=== PATIENT | female | born 1990 | race Caucasian/White ===

== ENCOUNTER 2020-12-27 12:29 | Emergency (ER) | payer MEDICAID, SELFPAY ==
[2020-12-27 12:35] VITALS: BP 138/79; PULSE 140; RESP 20; TEMP 36.3; O2SAT 97
--- NOTE | 2020-12-27 12:45 | RT.EKG_ITS ---
APPROVED REPORT Exam: Resting ECG Reason for Exam: tachycardia Patient Location: E HR:122 bpm ECG Measurements Heart Rate 122 AXIS IA 154 P 61 QRSd 104 QRS 76 QT 323 T 44 QTc 460 Conclusion Sinus tachycardia. J point elevation, may be rate related
--- NOTE | 2020-12-27 13:00 | DI.RAD_ITS ---
Exam(s) XR PORTABLE CHEST AP EXAM: XR PORTABLE CHEST AP CLINICAL HISTORY: cough. TECHNIQUE: 2D digital imaging was performed. COMPARISON: No exams were available for comparison FINDINGS: Heart size is normal. The mediastinum is not widened. Lungs are clear. No infiltrates nor obvious pleural effusions. IMPRESSION: No acute pulmonary findings on this single AP portable view of the chest. DATA REPOSITORY: RADIATION DOSE DELIVERED: All CT scans at this facility use at least one of these dose optimization techniques: automated exposure control; mA and/or kV adjustment per patient size (includes targeted e xams where dose is matched to clinical indication); or iterative reconstruction.
--- NOTE | 2020-12-27 13:22 | ED.GENADUL_ITS ---
Discharge Plan Disposition Patient Disposition: HOME Condition: Stable Discharge Details Clinical Impression: Bronchitis, Hypokalemia Primary Care Provider: None,None ED Provider: Nicholas Downs Home Meds and New Rx's Prescriptions: New prednisone 20 mg tablet 60 mg PO DAILY 5 Days Qty: 15 RF: 0 Continued albuterol sulfate [ProAir HFA] 90 mcg/actuation Hfa Aerosol Inhaler 2 puff INHALATION QID PRNRF: 0 Mirena 20 mcg/24 hours (6 yrs) 52 mg Intrauterine Device 1 insert INTRAUTERINE ONCE RF: 0 Discharge Instructions Instructions: Acute Bronchitis (ED), Hypokalemia (ED) Additional Instructions: I strongly recommend that you quit smoking. Do not overuse your inhaler, I can not stress the importance. I recommend taking [id number] potassium supplement over the next few days as your potassium was low here in the ER. Prednisone as directed. Please watch for new or worsening symptoms and return to the ER for any concerns. I do recommend that you you contact your primary care provider to discuss your ER visit, need for outpatient reevaluation, and need for potassium recheck. Discharge Data Discharge Date/Time-TO BE ENTERED AT DEPARTURE: 12/27/20 16:07 Medical Decision Making 30-year-old female, past medical history of asthma, current smoker, presents for concern of bronchitis. She has grossly overused her albuterol inhaler over the past 24 hours, totaling at least 200 puffs. She presents with tachycardia, afebrile, O2 sats 97% on room air. Tachycardia likely secondary to the albuterol however given her symptoms would like to obtain EKG, single troponin, and a D-dimer for further evaluation. 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 We did have a long talk about overuse of her albuterol. We also discussed smoking cessation Laboratory values reveal a blood cell count of 9.19, potassium 2.5, GFR greater than 60, troponin less than 0.05, Covid negative, D-dimer 298. No indication to pursue CTA of the chest Patient denies ever having hypokalemia before. EKG is not consistent with acute hyperkalemic changes. Will give 10 IV and 40 p.o. potassium. Likely hypokalemia secondary to her overuse of albuterol. Chest x-ray does not reveal any signs of pneumonia. No clear indication for antibiotic therapy. 125 IV Solu-Medrol given I explained to the patient that I would like to recheck her potassium given her time constraints she declines, understands the risk but needs to picker her child. She was encouraged to take [id number] potassium supplement over the next couple of days and have her potassium rechecked through her primary care provider. We once again discussed the importance of not overusing her albuterol inhaler. I will provide a prescription for burst dose of prednisone. Patient comfortable this plan and has no additional questions or concerns. Standard discharge and return precautions given. Heart rate trended downward throughout her ER visit. Heart rate now 112. This documentation was generated using [employer] system, please disregard any oddities of phrase or misspellings. Medical Records Medical records reviewed: Yes I reviewed the patient's medical records. Imaging Data Radiologic Study: Attestation: I personally reviewed and interpreted this imaging study as follows: Imaging: X-Ray Radiologist's impression: EXAM XR PORTABLE CHEST AP CLINICAL HISTORY [ cough. ] [] TECHNIQUE 2D digital imaging was performed. COMPARISON [No exams were available for comparison] [] FINDINGS [Heart size is normal. The mediastinum is not widened.] [Lungs are clear. No infiltrates nor obvious pleural effusions.] ] [] IMPRESSION [No acute pulmonary findings on this single AP portable view of the chest. Lab Data Lab results reviewed: Yes I reviewed the patient's lab results. Labs: Laboratory Tests Range/Units 12/27/20 12/27/20 12/27/20 13:18 13:30 13:35 WBC (4.4-10.8) 10^3/uL RBC (3.93-5.22) 10^6/uL Hgb (11.2-15.7) g/dL Hct (36.0-46.0) % MCV (80-95) fL MCH (27.0-33.0) pg MCHC (32.0-36.0) % RDW (11.7-14.6) % Plt Count (130-400) 10^3/uL MPV (8.0-11.0) fL Immature Gran % Neutrophils % Lymphocytes % Monocytes % Eosinophils % Basophils % Nucleated RBC % % Absolute Neutrophils (1.2-6.7) 10^3/uL Absolute Lymphocytes (1.2-3.4) 10^3/uL Absolute Monocytes (0.1-0.8) 10^3/uL Absolute Eosinophils (0.0-0.7) 10^3/uL Absolute Basophils (0.0-0.2) 10^3/uL D-Dimer (<500) ng/mlFEU Sodium (136-145) mmol/L 139 Potassium (3.5-5.1) mmol/L 2.5 L* Chloride (98-107) mmol/L 102 Carbon Dioxide (21.0-32.0) mmol/L 26.5 Anion Gap (3-11) mmol/L 10.5 BUN (7-18) mg/dL 6 L Creatinine (0.55-1.02) mg/dL 0.4 L Estimated GFR/1.73 m2 (mL/min/1.73m2) >= 60.00 Glucose (74-106) mg/dL 111 H Calcium (8.5-10.1) mg/dL 8.9 Magnesium (1.8-2.4) mg/dL 1.8 Total Bilirubin (0.2-1.0) mg/dL 0.5 AST (15-37) U/L 34 ALT (14-59) U/L 38 Alkaline Phosphatase (46-116) U/L 105 Troponin I (<0.06) ng/mL < 0.05 Total Protein (6.4-8.2) g/dL 7.2 Albumin (3.4-5.0) g/dL 3.7 COVID-19 Source Nasal/Nares SARS-CoV-2 (PCR) (Negative) Negative Range/Units 12/27/20 12/27/20 13:35 13:35 WBC (4.4-10.8) 10^3/uL 9.19 RBC (3.93-5.22) 10^6/uL 4.65 Hgb (11.2-15.7) g/dL 12.3 Hct (36.0-46.0) % 36.6 MCV (80-95) fL 78.7 L MCH (27.0-33.0) pg 26.5 L MCHC (32.0-36.0) % 33.6 RDW (11.7-14.6) % 12.4 Plt Count (130-400) 10^3/uL 185 MPV (8.0-11.0) fL 10.6 Immature Gran % 0.3 Neutrophils % 70.5 Lymphocytes % 22.2 Monocytes % 6.7 Eosinophils % 0.2 Basophils % 0.1 Nucleated RBC % % 0 Absolute Neutrophils (1.2-6.7) 10^3/uL 6.47 Absolute Lymphocytes (1.2-3.4) 10^3/uL 2.04 Absolute Monocytes (0.1-0.8) 10^3/uL 0.62 Absolute Eosinophils (0.0-0.7) 10^3/uL 0.02 Absolute Basophils (0.0-0.2) 10^3/uL 0.01 D-Dimer (<500) ng/mlFEU 298 Sodium (136-145) mmol/L Potassium (3.5-5.1) mmol/L Chloride (98-107) mmol/L Carbon Dioxide (21.0-32.0) mmol/L Anion Gap (3-11) mmol/L BUN (7-18) mg/dL Creatinine (0.55-1.02) mg/dL Estimated GFR/1.73 m2 (mL/min/1.73m2) Glucose (74-106) mg/dL Calcium (8.5-10.1) mg/dL Magnesium (1.8-2.4) mg/dL Total Bilirubin (0.2-1.0) mg/dL AST (15-37) U/L ALT (14-59) U/L Alkaline Phosphatase (46-116) U/L Troponin I (<0.06) ng/mL Total Protein (6.4-8.2) g/dL Albumin (3.4-5.0) g/dL COVID-19 Source SARS-CoV-2 (PCR) (Negative) ECG Data Attestation: I personally reviewed and interpreted this ECG (s) as follows: Interpretation: Please see official report by Dr. Tijerina. Sinus tachycardia, rate of 122. J-point elevation, may be rate related HPI General Mode of arrival: ambulatory . Date/Time Provider Initiated Documentation: 12/27/20 12:40 . Limitations to Documentation: no limitations . Information obtained by: patient . HPI Narrative: This is a 30-year-old female, current pack-a-day smoker, past medical history of asthma, presenting to the ER concerned that she has bronchitis and requesting oral steroids. Patient reports dry cough, shortness of breath over the past 2 days. Patient states that she has albuterol inhaler at home with a dose counter, has used over 200 puffs in the past 24 hours. She denies headache, fever productive cough, chest pain, abdominal pain, pain or swelling in her legs. Patient states that she recently moved to the area from [place] and is in the process of getting a new primary care doctor locally. She has not taken any [id number] medications for her symptoms. Patient states that she typically gets sick this time of year every year and needs steroids. Related Data Home Medications Medication Instructions Recorded Confirmed Mirena 1 insert INTRAUTERINE ONCE 12/27/20 12/27/20 albuterol sulfate [ProAir HFA] 2 puff INHALATION QID PRN 12/27/20 12/27/20 prednisone 60 mg PO DAILY 5 Days #15 tab 12/27/20 Previous Rx's Medication Instructions Recorded prednisone 60 mg PO DAILY 5 Days #15 tab 12/27/20 Allergies Allergy/AdvReac Type Severity Reaction Status Date / Time Sulfa (Sulfonamide Allergy Hives Unverified 12/27/20 12:38 Antibiotics) General Stated Complaint: RespSymp YONATAN: 4 Review of Systems Constitutional Constitutional: Denies fever(s) and Denies headache(s) ENT Ears, Nose, Mouth, and Throat: Denies headache(s) Cardiovascular Cardiovascular: Denies chest pain and Reports dyspnea Respiratory Respiratory: Reports cough and Reports dyspnea Gastrointestinal Gastrointestinal: Denies abdominal pain, Denies nausea and Denies vomiting Musculoskeletal Musculoskeletal: Denies back pain Integumentary/Breasts Skin/Breast: Denies rash Neurologic Neurologic: Denies headache(s) [facility] Medical History Asthma Social History Smoking/Tobacco Use Status: Current every day Tobacco Type: cigarettes Smoking risk assessment performed?: Yes Substance use type: marijuana Do you feel safe at home: Yes Do you feel safe in your relationship?: Yes Exam Const General: cooperative, healthy appearing, comfortable and no acute distress Orientation: alert, awake and oriented x3 HENMT Head: normal to inspection, normocephalic and atraumatic Ears: external ears normal, TM's normal bilaterally and EAC's normal Face and sinus: normal facial exam Mouth: moist mucous membranes Throat: posterior oropharynx normal Eyes General: appearance normal, both eyes and all related structures Conjunctivae: conjunctivae normal Neck Neck: normal visual inspection, full ROM, no lymphadenopathy, trachea midline, supple and nontender Resp Effort & Inspection: normal respiratory effort and able to speak in complete sentences Auscultation: wheezes (Occasional, scattered throughout, clears with coughing) Cardio Rate: tachycardic (144) Rhythm: regular rhythm GI Palpation: soft and nontender Back/Spine/Pelvis Back: No back tenderness Skin General skin exam: no rashes or lesions noted Neuro General: patient alert, patient awake, moves all extremities and no focal motor deficits Speech: speech normal Gait: normal gait Sensory Exam: no sensory deficits noted Extrem General: normal to inspection, full ROM, capillary refill normal, no pedal edema and no calf tenderness Psych Appearance: grossly normal Mental Status: mental status grossly normal Course Vital Signs Vital signs: Vital Signs Temperature 36.3 C L 12/27/20 12:35 Pulse 140 H 12/27/20 12:35 Respiratory Rate 20 12/27/20 12:35 Blood Pressure 138/79 12/27/20 12:35 Pulse Oximetry 97 12/27/20 12:35 Temperature 36.3 C L 12/27/20 12:35 Temperature Source Skin 12/27/20 12:35 Pulse 140 H 12/27/20 12:35 Respiratory Rate 20 12/27/20 12:35 Respiratory Effort Non-Labored 12/27/20 12:40 Blood Pressure 138/79 12/27/20 12:35 Blood Pressure Position Sitting 12/27/20 12:35 Pulse Oximetry 97 12/27/20 12:35 Oxygen Delivery Method Room Air 12/27/20 12:35 Oxygen Flow Rate 0 12/27/20 12:35 Pain Level 0 12/27/20 12:35
[2020-12-27 13:34] LABS: Source Nasal/Nares
[2020-12-27 13:53] LABS: Abs Immature Grans 0.03 10^3/uL (0.0-0.06); Absolute Basophil Count 0.01 10^3/uL (0.0-0.2); Absolute Eosinophil Count 0.02 10^3/uL (0.0-0.7); Absolute Lymphocyte Count 2.04 10^3/uL (1.2-3.4); Absolute Monocyte Count 0.62 10^3/uL (0.1-0.8); Absolute Neutrophil Count 6.47 10^3/uL (1.2-6.7); Basophils % 0.1; Eosinophils % 0.2; HCT 36.6 % (36.0-46.0); HGB 12.3 g/dL (11.2-15.7); Immature Grans % 0.3; Lymphocytes % 22.2; MCH 26.5 pg (27.0-33.0); MCHC 33.6 % (32.0-36.0); MCV 78.7 fL (80-95); MPV 10.6 fL (8.0-11.0); Monocytes % 6.7; Neutrophils % 70.5; Nucleated RBC 0 %; Platelet Count 185 10^3/uL (130-400); RBC 4.65 10^6/uL (3.93-5.22); RDW 12.4 % (11.7-14.6); RDW-SD 35.4 fL; WBC 9.19 10^3/uL (4.4-10.8)
[2020-12-27 14:10] LABS: ALT 38 U/L (14-59); AST 34 U/L (15-37); Albumin 3.7 g/dL (3.4-5.0); Alkaline Phosphatase 105 U/L (46-116); Anion Gap 10.5 mmol/L (3-11); BUN 6 mg/dL (7-18); Bilirubin, Total 0.5 mg/dL (0.2-1.0); CO2 26.5 mmol/L (21.0-32.0); CREATININE 0.4 mg/dL (0.55-1.02); Calcium 8.9 mg/dL (8.5-10.1); Chloride 102 mmol/L (98-107); Glucose 111 mg/dL (74-106); Sodium 139 mmol/L (136-145); Total Protein 7.2 g/dL (6.4-8.2)
[2020-12-27 14:11] LABS: Potassium 2.5 mmol/L (3.5-5.1); Troponin I < 0.05 ng/mL (<0.06)
[2020-12-27 14:18] LABS: D-Dimer 298 ng/mlFEU (<500)
[2020-12-27 14:26] LABS: COVID-19 PCR Negative (Negative)
[2020-12-27 14:33] LABS: Magnesium 1.8 mg/dL (1.8-2.4)
[2020-12-27 14:36] VITALS: PULSE 124; RESP 24; O2SAT 100
[2020-12-27 14:40] VITALS: PULSE 120; RESP 22; O2SAT 100
[2020-12-27] MEDS: Potassium Chloride 20 MEQ TABCR 40 MEQ PO (14:41)
[2020-12-27] MEDS: POTASSIUM CHLORIDE 10 MEQ/100 ML BAG 100 MEQ IVPB (14:41)
[2020-12-27] MEDS: methylPREDNISolone SUCC 125 MG VIAL IVP (14:51)
[2020-12-27 16:04] VITALS: BP 120/59; PULSE 118; RESP 16; TEMP 36.6; O2SAT 100
--- NOTE | 2020-12-27 16:48 | NUR.NOTE ---
referral cm for pcp establish
--- NOTE | 2020-12-28 09:58 | PDOC.ERCMPRO ---
- If Service Date Differs Date of service: 12/28/20 Time of Service: 09:58 Care Management Progress Note Anastasiia is seen in the ED for bronchitis. At the request of ED provider, KEIRA coordinates a referral to Jose Espinoza MD, of the [facility], on-call provider, to assist Anastasiia in obtaining a follow up appointment and in establishing care with a PCP. She has [place] Medicaid for insurance.
== END 2020-12-27 16:07 | disposition home or self-care (01) ==
PROVIDERS: Emergency Provider Physician Assistant
DX: J20.9 Acute bronchitis, unspecified (principal); F17.210 Nicotine dependence, cigarettes, uncomplicated; E87.6 Hypokalemia; R00.0 Tachycardia, unspecified; J45.909 Unspecified asthma, uncomplicated; Z79.51 Long term (current) use of inhaled steroids
CPT/HCPCS: 36415; 80053; 87635; 93005; 96365; 96375; 99284; 71045; 83735; 84484; 85025; 85379; 93010; J2930; J3480

== ENCOUNTER 2021-10-15 21:23 | Emergency (ER) | payer MEDICAID, SELFPAY ==
--- NOTE | 2021-10-15 21:51 | W.ED.GENAD ---
Discharge Plan Disposition Patient Disposition: HOME Condition: Good Discharge Details Clinical Impression: Cellulitis of right lower limb Primary Care Provider: Unknown,Unknown ED Provider: Sohan Blue Home Meds and New Rx's Prescriptions: New clindamycin HCl 150 mg capsule 450 mg PO Q8H 7 Days Qty: 63 0RF clotrimazole 1 % cream 1 appful vaginal QHS Qty: 45 0RF No Action albuterol sulfate [ProAir HFA] 90 mcg/actuation Hfa Aerosol Inhaler 2 puff INHALATION QID PRN Mirena 20 mcg/24 hours (6 yrs) 52 mg Intrauterine Device 1 insert INTRAUTERINE ONCE Discharge Instructions Instructions: Cellulitis (ED) Additional Instructions: At this time you do have cellulitis behind your knee, but you do not have an abscess yet. However you may develop an abscess over the next few days. If you notice any that liquid feeling beneath the skin, please return for reassessment. As we discussed together, there is always a chance that when you have an infection in this area that you could develop a blood clot. Although there is no clinical evidence of that now if you do develop chest pain, short of breath, or pain with breathing, please return for evaluation. Please take the antibiotic as directed. It has been sent to your pharmacy on file. Please also take the vaginal antifungal cream as needed to prevent a yeast infection. If you notice any worsening of your symptoms, or any new symptoms such as vomiting, diarrhea, fever, chills, shortness of breath, chest pain, numbness, weakness, or fainting , please return immediately to the emergency department for reevaluation. Please follow up with your primary care provider as soon as possible for reassessment and reevaluation. As always, it was a pleasure participating in your medical care today. Discharge Data Discharge Date/Time-TO BE ENTERED AT DEPARTURE: 10/15/21 22:09 Medical Decision Making This is a 30-year-old female with a past medical history of reactive airway disease, who presents today for lesion on her right calf. Patient states that 4 to 5 days ago she had what she thought was a small pimple or infected hair follicle that she tried to squeeze and pop, but nothing came out. Shortly thereafter she developed began to develop redness and swelling around the area. This is progressed over the last few days. Currently she has mild pain with walking, demonstrates notable tenderness on the skin but there is swelling and warmth. She denies fever or chills. She denies chest pain or shortness of breath. She denies any pleuritic chest pain. She denies any history of blood clots. No other complaints at this time. Pain is made worse with movement. It is improved with Tylenol and Motrin. She denies any IV or illicit drug use. She denies any trauma to the area. Physical exam demonstrates a notable area of cellulitis on the patient's posterior calf and the posterior popliteal space. No swelling of the knee itself. No edema of the joint. No evidence of septic arthritis currently. Bedside ultrasound of the area on the leg demonstrates some mild cobblestoning but shows no signs of fluctuance or abscess or fluid collection. Patient is afebrile here. Patient's heart rate was elevated, but the patient states that it is been normal at home, and she feels extremely nervous right now and states that her heart rate was fine before she got here. At this time the patient's symptoms are certainly concerning for moderate cellulitis. It is not circumferential, she is afebrile, and has no constitutional symptoms of fever or chills. She is stable for outpatient management. With no evidence of abscess, there is no indication for surgical drainage at this time. She clinically denies any chest pain, shortness of breath or pleuritic chest pain. No symptoms to suggest pulmonary embolism at this time. We will start the patient on clindamycin. I had a long discussion with the patient regarding the potential for abscess development, signs and symptoms that would reflect this. Patient understands, we recommend return if her symptoms persist and progressive back. Additionally I also discussed symptoms concerning for pulmonary embolism if she does develop a blood clot secondary to this lesion on her calf. We spent a long time going over the symptoms that would merit prompt return and the patient again understands. Will recommend continue clindamycin on outpatient basis. Discussed the importance of Tylenol and Motrin. I have extensively reviewed the treatment plan and discharge instructions with the patient. I have addressed all patient concerns at this time. The patient was made aware of what symptoms to monitor for that would warrant a return to the emergency department. Discussed the plan with the patient, they demonstrate verbal understanding and agreement with our assessment and plan at this time. The documentation in this chart was dictated using [employer] dictation software. Please excuse any dictation errors. HPI General Date/Time Provider Initiated Documentation: 10/15/21 21:28. HPI Narrative: This is a 30-year-old female with a past medical history of reactive airway disease, who presents today for lesion on her right calf. Patient states that 4 to 5 days ago she had what she thought was a small pimple or infected hair follicle that she tried to squeeze and pop, but nothing came out. Shortly thereafter she developed began to develop redness and swelling around the area. This is progressed over the last few days. Currently she has mild pain with walking, demonstrates notable tenderness on the skin but there is swelling and warmth. She denies fever or chills. She denies chest pain or shortness of breath. She denies any pleuritic chest pain. She denies any history of blood clots. No other complaints at this time. Pain is made worse with movement. It is improved with Tylenol and Motrin. She denies any IV or illicit drug use. She denies any trauma to the area. Related Data Home Medications Medication Instructions Recorded Confirmed albuterol sulfate 90 mcg/actuation 2 puff inhalation QID PRN 12/27/20 12/27/20 aerosol inhaler (ProAir HFA) levonorgestrel 20 mcg/24 hours (7 1 insert intrauterine ONCE 12/27/20 12/27/20 yrs) 52 mg intrauterine device (Mirena) clindamycin HCl 150 mg capsule 450 mg PO Q8H 7 days #63 caps 10/15/21 clotrimazole 1 % vaginal cream 1 appful vaginal QHS #45 grams 10/15/21 Previous Rx's Medication Instructions Recorded clindamycin HCl 150 mg capsule 450 mg PO Q8H 7 days #63 caps 10/15/21 clotrimazole 1 % vaginal cream 1 appful vaginal QHS #45 grams 10/15/21 Allergies Allergy/AdvReac Type Severity Reaction Status Date / Time Sulfa (Sulfonamide Allergy Hives Unverified 10/15/21 21:43 Antibiotics) General Stated Complaint: RashLesion YONATAN: 3 Review of Systems All systems reviewed & are unremarkable except as noted in HPI and below PFSH All Active Problems Bronchitis (Acute) Hypokalemia (Acute) Cellulitis of right lower limb (Acute) Medical History Asthma Social History Smoking/Tobacco Use Status: Current every day Tobacco Type: cigarettes Smoking risk assessment performed?: Yes Substance use type: marijuana Do you feel safe at home: Yes Do you feel safe in your relationship?: Yes Exam Narrative Exam Narrative: 1.Const: Well-nourished, Well-developed, appearing stated age 2.Eyes: PERRL, no conjunctival injection, and symmetrical lids. 3.ENT: Atraumatic external nose and ears. Moist MM. Neck: Symmetric, trachea midline, No thyromegaly. 4.CVS: +S1/S2, No murmurs or gallops. Peripheral pulses 2+ and equal in all extremities. Brisk capillary refill in all extremities. 5.RESP: Unlabored respiratory effort. Clear to auscultation bilaterally. No wheezes rales or rhonchi 6.GI: Soft, Nontender/Nondistended, No hepatosplenomegaly. No guarding or rebound. 7.MSK: Normocephalic/Atraumatic, patient's right posterior knee area and calf demonstrates notable amount of redness and firmness roughly 4 cm in diameter with superficial redness but no swelling or edema extending around that and down the calf. No tenderness of the knee itself. No swelling or edema of the knee itself. At the center of the cellulitis there is evidence of a small darker area. Bedside ultrasound shows no evidence of large abscess. There does appear to be a very small amount of cobblestoning in the fatty tissues, but no focal fluid collection. No subcutaneous crepitus. 8.Skin: Warm, Dry. Please see musculoskeletal 9.Neuro: teacher emotionally impaired II-XII grossly intact. Sensation grossly intact, no focal neurologic deficits. 10.Psych: (AAO) x3. Appropriate mood and affect Course Vital Signs Vital signs: Respiratory Effort Non-Labored 10/15/21 21:39
[2021-10-15 22:08] VITALS: BP 133/77; PULSE 125; RESP 18; O2SAT 100
[2021-10-15] MEDS: Clindamycin 150 MG CAP, 12 CAPS/BTL 450 MG PO (22:08)
== END 2021-10-15 22:09 | disposition home or self-care (01) ==
PROVIDERS: Emergency Provider Student in an Organized Health Care Education/Training Program
DX: L03.115 Cellulitis of right lower limb (principal)
CPT/HCPCS: 99283

== ENCOUNTER 2021-10-23 20:05 | Emergency (ER) | payer MEDICAID, SELFPAY ==
[2021-10-23 20:10] VITALS: BP 129/79; PULSE 128; RESP 18; TEMP 36.7; O2SAT 99
--- NOTE | 2021-10-23 23:38 | ED.GENADUL_ITS ---
Discharge Plan Disposition Patient Disposition: OTHER Condition: Stable Discharge Details Chief Complaint: Cellulitis Clinical Impression: Cellulitis of right lower limb Primary Care Provider: Unknown,Unknown ED Provider: Ludwig Sanchez Home Meds and New Rx's Prescriptions: No Action clotrimazole 1 % cream 1 appful vaginal QHS Qty: 45 0RF albuterol sulfate [ProAir HFA] 90 mcg/actuation Hfa Aerosol Inhaler 2 puff INHALATION QID PRN Mirena 20 mcg/24 hours (6 yrs) 52 mg Intrauterine Device 1 insert INTRAUTERINE ONCE Discharge Data Discharge Date/Time-TO BE ENTERED AT DEPARTURE: 10/23/21 21:01 Medical Decision Making Patient presenting for to the emergency department for recheck of cellulitis of left lower extremity. She does state that she was seen in [place] and placed on antibiotics and overall that the cellulitis is improving but she did notice some swelling to her leg today. She became severely anxious due to at one point being told leg swelling could be a DVT. Patient did have ultrasound imaging performed at [facility] but has not received the results yet. Physical exam shows an open draining abscess to the right superior aspect of the calf. There is mild surrounding redness but otherwise exam is unremarkable and no systemic symptoms. Bedside ultrasound was utilized and no obvious DVT was noted with full compressibility of deep veins from the proximal calf up through the thigh was performed. I did request notes from [facility] prior to discharge to see what official ultrasound imaging that he performed. Pending receiving results from [place] patient eloped and did not inform any staff or myself that she was leaving. I do not feel that patient is any risk of severe deterioration given that she denied any pain or discomfort and feel that she more likely had swelling secondary to the cellulitis and became anxious when she did not receive her results from [place]. Wound culture was sent prior to her leaving and will follow up with patient who is already on clindamycin if this does not seem to be effective antibiotic choice. HPI General Mode of arrival: ambulatory . Date/Time Provider Initiated Documentation: 10/23/21 20:07 . Limitations to Documentation: no limitations . Information obtained by: patient, RN notes reviewed and old records reviewed . History of Present Illness 30 year old F presents to the emergency department with the chief complaint of Right leg swelling and infection, described as moderate and similar to prior episodes, Quality is described as other (Denies pain ), Patient started experiencing this week(s) (2) Related Data Home Medications Medication Instructions Recorded Confirmed albuterol sulfate 90 mcg/actuation 2 puff inhalation QID PRN 12/27/20 12/27/20 aerosol inhaler (ProAir HFA) levonorgestrel 20 mcg/24 hours (7 1 insert intrauterine ONCE 12/27/20 12/27/20 yrs) 52 mg intrauterine device (Mirena) clotrimazole 1 % vaginal cream 1 appful vaginal QHS #45 grams 10/15/21 Previous Rx's Medication Instructions Recorded clotrimazole 1 % vaginal cream 1 appful vaginal QHS #45 grams 10/15/21 Allergies Allergy/AdvReac Type Severity Reaction Status Date / Time Sulfa (Sulfonamide Allergy Hives Unverified 10/15/21 21:43 Antibiotics) General Stated Complaint: Cellulitis YONATAN: 4 Review of Systems Constitutional Constitutional: Denies body ache(s), Denies chills and Denies fever(s) Cardiovascular Cardiovascular: Denies chest pain and Denies dyspnea Respiratory Respiratory: Denies dyspnea Gastrointestinal Gastrointestinal: Denies abdominal pain, Denies nausea and Denies vomiting Integumentary/Breasts Skin/Breast: Reports as per HPI, Denies erythema, Denies rash and Reports wounds Neurologic Neurologic: Denies sensory deficit PFSH All Active Problems (Updated 10/24/21 @ 21:48 by Ludwig Sanchez NP) Bronchitis (Acute) Hypokalemia (Acute) Cellulitis of right lower limb (Acute) Medical History Asthma Social History Smoking/Tobacco Use Status: Current every day Tobacco Type: cigarettes Smoking packs per day: 1.5 Smoking cigarettes per day: 30.0 Years smoked: 15 Smoking pack-years: 22.50 Tobacco: How many years used: 15 Smoking risk assessment performed?: Yes Alcohol Intake: current Alcohol Intake frequency: holidays/special occasions only Substance use type: marijuana Do you feel safe at home: Yes Do you feel safe in your relationship?: Yes Exam Const General: cooperative, no acute distress and not ill appearing Orientation: alert, awake and oriented x3 HENMT Mouth: moist mucous membranes Resp Effort & Inspection: normal respiratory effort, able to speak in complete sentences and no respiratory distress Cardio Rate: regular rate Rhythm: regular rhythm Skin Rashes: no rashes Neuro General: patient alert, patient awake, patient oriented x3, moves all extremities and no focal motor deficits Sensory Exam: no sensory deficits noted Extrem General: normal exam except as noted Right lower extremity: lower leg Details: localized swelling Location: of the proximal lower leg and no edema; no tenderness Knee images: 1. Area of abscess Course Vital Signs Vital signs: Vital Signs Temperature 36.7 C 10/23/21 20:10 Pulse 128 H 10/23/21 20:10 Respiratory Rate 18 10/23/21 20:10 Blood Pressure 129/79 10/23/21 20:10 Pulse Oximetry 99 10/23/21 20:10 Temperature 36.7 C 10/23/21 20:10 Temperature Source Skin 10/23/21 20:10 Pulse 128 H 10/23/21 20:10 Respiratory Rate 18 10/23/21 20:10 Respiratory Effort Non-Labored 10/23/21 20:20 Blood Pressure 129/79 10/23/21 20:10 Blood Pressure Position Sitting 10/23/21 20:10 Pulse Oximetry 99 10/23/21 20:10 Oxygen Delivery Method Room Air 10/23/21 20:10 Oxygen Flow Rate 0 10/23/21 20:10 Pain Level 0 10/23/21 21:08 Lab/Test Results Lab/Test Results: 10/23/21 20:40 Leg - Back Wound Culture - Pending 10/23/21 20:40 Leg - Back Gram Stain - Final
--- NOTE | 2021-10-27 11:20 | W.ED.FU ---
Follow Up Plan: Wound culture resulted MRSA moderate growth and Pseudomonas scant growth on 10/27/21. She was given clindamycin on 10/23/21. Message left on patient's cell phone [phone] to call the ED to discuss results and follow-up on her symptoms. Her clindamycin will likely cover for the MRSA but she may need additional coverage for the Pseudomonas.
--- NOTE | 2021-10-29 10:26 | NUR.NOTE ---
Nursing Note: Referral faxed to [facility] for chronic wound,1 week.
== END 2021-10-23 21:01 | disposition other institution (70) ==
LOC: ER 20:10
PROVIDERS: Emergency Provider Nurse Practitioner Family
DX: L03.115 Cellulitis of right lower limb (principal); L02.415 Cutaneous abscess of right lower limb; B95.62 Methicillin resistant Staphylococcus aureus infection as the cause of diseases classified elsewhere
CPT/HCPCS: 87077; 99283; 87070; 87186; 87205

== ENCOUNTER 2022-01-09 18:49 | Outpatient (REF) | payer MEDICAID, SELFPAY ==
--- NOTE | 2022-01-11 09:16 | NUR.NOTE ---
Nursing Note: Lab called stating the patient was positive for MRSA on this visit. I accessed the chart for the information, and found that it was sent to lab by [facility]. Lab was called and they will notify them.
== END 2022-01-09 18:50 | disposition home or self-care (01) ==
LOC: LBN 18:49
PROVIDERS: Visit Provider Physician Assistant Medical
DX: L08.89 Other specified local infections of the skin and subcutaneous tissue (principal); S71.102A Unspecified open wound, left thigh, initial encounter
CPT/HCPCS: 87077; 87070; 87186; 87205

== ENCOUNTER 2022-08-20 19:35 | Emergency (ER) | payer MEDICAID, SELFPAY ==
[2022-08-20 19:41] VITALS: BP 129/78; PULSE 121; RESP 22; O2SAT 100
[2022-08-20] MEDS: Benzocaine 20% Gel 30 GM JAR MM (20:41)
[2022-08-20] MEDS: LORazepam 2 MG/ML VIAL 1 MG IM (21:19)
--- NOTE | 2022-08-20 22:05 | ED.GENADUL_ITS ---
Discharge Plan Disposition Patient Disposition: Home Discharge Details Clinical Impression: Abscess, dental Primary Care Provider: Unknown,Unknown ED Provider: Jamia Green Home Meds and New Rx's Prescriptions: Continued clindamycin HCl 150 mg Capsule 150 mg PO TID albuterol sulfate [ProAir HFA] 90 mcg/actuation Hfa Aerosol Inhaler 2 puff INHALATION QID PRN Mirena 20 mcg/24 hours (6 yrs) 52 mg Intrauterine Device 1 insert INTRAUTERINE ONCE Discharge Instructions Instructions: Dental Abscess (ED) Additional Instructions: Continue taking your antibiotic as prescribed Yogurt daily while on antibiotic You have 4 tablets of oxycodone, no but this is addictive and can cause constipation, do not drive for 8 hours after taking this medication Take ibuprofen and Tylenol for pain control I am giving you a dental list, please review Please return immediately should you have any worsening complaints Ibuprofen and Tylenol as needed for pain Discharge Data Discharge Date/Time-TO BE ENTERED AT DEPARTURE: 08/20/22 22:40 Medical Decision Making 31-year-old female presents with large dental abscess and facial pain with swelling Dental block was performed with good effect and incision and drainage was performed with approximately 10 cc of purulent bloody drainage aspirated Patient reports marked improvement in symptoms We will continue on the clindamycin, 4 tablets of oxycodone with risk of addiction reviewed No evidence of Jeffry's angina clinically We will follow-up with oral surgery Ibuprofen and Tylenol Return precautions reviewed and patient expressed understanding Medical Records Medical records reviewed: Yes I reviewed the patient's medical records. Lab Data Lab results reviewed: Yes I reviewed the patient's lab results. HPI General Date/Time Provider Initiated Documentation: 08/20/22 19:47 . HPI Narrative: This 31-year-old female presents with report of pain to her left lower jawline. She was started on clindamycin for suspected dental abscess. She states that the pain and swelling has increased dramatically in the past day. She has been taking the antibiotics as prescribed. She denies any chest pain or shortness of breath. She denies any headache or fever. She denies stiff neck or difficulty swallowing. She denies any difficulty opening her jaw. She does have pain with chewing per patient. She denies any drainage. Related Data Home Medications Medication Instructions Recorded Confirmed albuterol sulfate 90 mcg/actuation 2 puff inhalation QID PRN 12/27/20 08/20/22 aerosol inhaler (ProAir HFA) levonorgestrel 21 mcg/24 hours (8 1 insert intrauterine ONCE 12/27/20 08/20/22 yrs) 52 mg intrauterine device (Mirena) clindamycin HCl 150 mg capsule 150 mg PO TID 08/20/22 08/20/22 Allergies Allergy/AdvReac Type Severity Reaction Status Date / Time Sulfa (Sulfonamide Allergy Hives Unverified 08/20/22 21:21 Antibiotics) General Stated Complaint: DentalOral YONATAN: 4 PFSH All Active Problems (Updated 08/20/22 @ 22:08 by MAYA Quach) Abscess, dental (Acute) Medical History (Updated 08/20/22 @ 22:08 by MAYA Quach) Asthma Bronchitis Hypokalemia Social History Smoking/Tobacco Use Status: Current every day Tobacco Type: cigarettes Smoking packs per day: 1.5 Smoking cigarettes per day: 30.0 Years smoked: 15 Smoking pack-years: 22.50 Tobacco: How many years used: 15 Smoking risk assessment performed?: Yes Alcohol Intake: current Alcohol Intake frequency: holidays/special occasions only Substance use type: marijuana Do you feel safe at home: Yes Do you feel safe in your relationship?: Yes Exam Const Other: Patient is anxious in presentation, she has significant swelling to her left lo wer jawline, I suspect she has abscess to #21, however given widespread dental decay it is difficult assessment, she does have fluctuance adjacent to this tooth without soft palate induration or trismus, she has no submandibular swelling and is maintaining secretions Course Vital Signs Vital signs: Vital Signs Pulse 121 H 08/20/22 19:41 Respiratory Rate 22 08/20/22 19:41 Blood Pressure 129/78 08/20/22 19:41 Pulse Oximetry 100 08/20/22 19:41 Pulse 121 H 08/20/22 19:41 Respiratory Rate 22 08/20/22 19:41 Respiratory Effort Normal 08/20/22 19:46 Blood Pressure 129/78 08/20/22 19:41 Blood Pressure Position Sitting 08/20/22 19:41 Pulse Oximetry 100 08/20/22 19:41 Oxygen Delivery Method Room Air 08/20/22 19:41 Oxygen Flow Rate 0 08/20/22 19:41 Pain Level 10 08/20/22 19:41 Procedures Abscess I/D Site: Other Side (if applicable): Left Local Anesthetic: Bupivicaine 0.5% Amount of anesthesia used (mL): 1 Technique: Needle Aspiration and Incised with #11 Blade Amount of fluid expressed (mL): 10 Packing used?: Plain Nerve Block Nerve Block 1: Time out performed: Yes Local Anesthetic: Bupivicaine 0.5% Amount of anesthesia used (mL): 2 Side: left Intraoral Nerve Block: inferior alveolar Procedure Successful: Yes Patient Tolerated Procedure: well Complications: none
[2022-08-20 22:08] VITALS: BP 135/87; PULSE 112; RESP 16; TEMP 37.3; O2SAT 100
[2022-08-20 22:38] VITALS: BP 129/77; PULSE 110; RESP 18; TEMP 36.9; O2SAT 100
== END 2022-08-20 22:40 | disposition home or self-care (01) ==
PROVIDERS: Emergency Provider Physician Assistant
DX: K04.7 Periapical abscess without sinus (principal); J45.909 Unspecified asthma, uncomplicated
CPT/HCPCS: 41800; 96372; 99284; J2060